=== PATIENT | male | born 1945 | race Asian ===

== ENCOUNTER 2016-08-28 12:09 | Outpatient (CLI) | payer MEDICARE, OTHER | END 2016-08-28 12:10 | disposition home or self-care (01) | DX: M18.0 Bilateral primary osteoarthritis of first carpometacarpal joints (principal) ==

== ENCOUNTER 2016-12-03 16:17 | Outpatient (CLI) | payer MEDICARE, OTHER | END 2016-12-03 16:18 | disposition critical access hospital (66) | DX: R06.82 Tachypnea, not elsewhere classified (principal) | CPT/HCPCS: A0425; A0427 ==

== ENCOUNTER 2016-12-03 16:31 | Emergency (ER) | payer MEDICARE, OTHER ==
[2016-12-03 17:04] LABS: BASOPHILS % (AUTO) 0.2 %; EOSINOPHILS # (AUTO) 0.3 10^3/uL (0.0-0.7); EOSINOPHILS % (AUTO) 5.9 %; HCT - HEMATOCRIT 42.6 % (42.0-52.0); HGB - HEMOGLOBIN 14.6 g/dL (14.0-18.0); LYMPHOCYTES # (AUTO) 0.3 10^3/uL (1.5-3.5); LYMPHOCYTES % (AUTO) 4.7 %; MEAN CORPUSCULAR HEMOGLOBIN 29.9 pg (27.0-31.0); MEAN CORPUSCULAR HGB CONC 34.3 g/dL (32.0-36.0); MEAN CORPUSCULAR VOLUME 87.2 fL (80.0-94.0); MEAN PLATELET VOLUME 9.9 fL (7.4-11.4); MONOCYTES % (AUTO) 0.5 %; NEUTROPHILS # (AUTO) 4.8 10^3/uL (1.5-6.6); NEUTROPHILS % (AUTO) 88.7 %; NUCLEATED RED BLOOD CELLS AUTO 0.1 /100WBC; RED BLOOD COUNT 4.88 10^6/uL (4.70-6.10); RED CELL DISTRIBUTION WIDTH 13.6 % (12.0-15.0); UNCORRECTED WHITE BLOOD COUNT 5.4 x10^3/uL; WHITE BLOOD COUNT 5.4 x10^3/uL (4.8-10.8)
[2016-12-03 17:14] LABS: CALCIUM 8.2 mg/dL (8.5-10.3); CREATININE 2.9 mg/dL (0.6-1.2); POTASSIUM 2.6 mmol/L (3.5-5.0)
[2016-12-03 17:20] LABS: PLATELET MORPHOLOGY 1+ LARGE PLATELETS (NORMAL)
[2016-12-03 17:21] LABS: PLATELET ESTIMATE, MANUAL DECREASED (<130,000) (NORMAL)
--- NOTE | 2016-12-03 17:27 | ED Physician Documentation ---
History of Present Illness - Stated complaint Stated Complaint: FLU LIKE SX - Chief complaint Chief Complaint: General - Additonal information Additional information: hx from pt 71 male who reports no sig Pmhx but take metformin and HCTZ to ER with 4 days up upper abd pain, nausea, vomit X one, few episodes diarrhea , shaking chills poor PO intake X several days no sick contacts, no travel, no bad food Review of Systems Constitutional: reports: Chills. denies: Fever Cardiac: denies: Chest pain / pressure Respiratory: denies: Dyspnea (but hypoxic) GI: reports: Abdominal Pain, Vomiting (X 1), Diarrhea. denies: Nausea, Bloody / black stool : denies: Dysuria Neurologic: reports: Generalized weakness Endocrine: denies: Easy bruising / bleeding Immunocompromised: denies: Immunocompromised PD PAST MEDICAL HISTORY - Past Medical History Past Medical History: No Cardiovascular: Hypertension - Past Surgical History Past Surgical History: Yes Ortho: Other - Present Medications Home Medications: Ambulatory Orders Medication Instructions Recorded Confirmed Hydrochlorothiazide 0 mg PO DAILY 12/03/16 12/03/16 metFORMIN [Glucophage] 0 mg PO DAILY 12/03/16 12/03/16 - Allergies Allergies/Adverse Reactions: Allergies Allergy/AdvReac Type Severity Reaction Status Date / Time No Known Drug Allergies Allergy Verified 12/03/16 16:35 - Social History Does the pt smoke?: No Smoking Status: Never smoker Does the pt drink ETOH?: No Does the pt have substance abuse?: No - Immunizations Immunizations are current?: Yes - POLST Patient has POLST: No PD ED PE NORMAL - Vitals Vital signs reviewed: Yes - General General: Alert and oriented X 3 - HEENT HEENT: Moist mucous membranes - Neck Neck: No JVD - Cardiac Cardiac: No: RRR (tacy) - Respiratory Respiratory: Other (rales danielito bases) - Abdomen Abdomen: Soft, Other (mod TTP upper abd, faintly palpable aorta, no lower abd TTP) - Derm Derm: Other (warm disphoretic) - Extremities Extremities: No edema, No calf tenderness / cord - Neuro Neuro: Alert and oriented X 3 Results - Vitals Vitals: Vital Signs - 24 hr 12/03/16 12/03/16 12/03/16 16:35 17:32 18:02 Temperature 36.6 C Heart Rate 138 H 119 H 109 H Respiratory 18 20 18 Rate Blood Pressure 118/76 90/53 L 90/51 L O2 Saturation 88 L 93 94 12/03/16 12/03/16 12/03/16 18:12 18:42 18:55 Temperature Heart Rate 105 H 111 H 110 H Respiratory 18 20 18 Rate Blood Pressure 87/52 L 91/53 L 94/53 L O2 Saturation 95 98 96 12/03/16 12/03/16 12/03/16 19:51 20:34 21:19 Temperature 36.6 C Heart Rate 111 H 114 H 114 H Respiratory 18 18 18 Rate Blood Pressure 89/55 L 88/56 L 84/49 L O2 Saturation 94 91 L 92 12/03/16 12/03/16 12/03/16 21:45 22:03 22:27 Temperature 37.1 C Heart Rate 116 H 113 H 116 H Respiratory 20 20 22 Rate Blood Pressure 87/51 L 85/52 L 86/53 L O2 Saturation 91 L 92 92 12/03/16 12/03/16 22:33 22:42 Temperature Heart Rate 115 H Respiratory 18 20 Rate Blood Pressure 90/54 L 101/64 O2 Saturation 94 93 Oxygen O2 Source Nasal cannula Oxygen Flow Rate 3 - EKG (time done) 1650 Rate: Rate (enter#) (127) Rhythm: NSR Goodwin: LAD Ischemia: Q waves (inferior and anterior), Non specific changes Other comments: Other comments (severe baseline wander despite numerous attempts ) - Labs Labs: Laboratory Tests 12/03/16 12/03/16 12/03/16 16:51 16:51 16:51 WBC 5.4 RBC 4.88 Hgb 14.6 Hct 42.6 MCV 87.2 MCH 29.9 MCHC 34.3 RDW 13.6 Plt Count 90 L MPV 9.9 Neut # 4.8 Lymph # 0.3 L Caldwell # 0.0 Eos # 0.3 Baso # 0.0 Absolute Nucleated RBC 0.00 Total Counted Band Neuts % (Manual) Neutrophils # (Manual) Lymphocytes # (Manual) Monocytes # (Manual) Nucleated RBCs 0.1 Differential Comment Manual Slide Review Indicated WBC Morphology Platelet Estimate DECREASED (<130,000) Platelet Morphology 1+ LARGE PLATELETS RBC Morph Micro Appear 1+ ANISOCYTOSIS PT INR Sodium 128 L Potassium 2.6 L Chloride 89 L Carbon Dioxide 20 L Anion Gap 19.0 H BUN 55 H Creatinine 2.9 H Estimated GFR (MDRD) 22 L Glucose 147 H Lactic Acid Calcium 8.2 L Total Bilirubin Direct Bilirubin AST ALT Alkaline Phosphatase Total Creatine Kinase Troponin I 0.04 B-Natriuretic Peptide Total Protein Albumin Globulin Amylase Lipase Urine Color Urine Clarity Urine pH Ur Specific [place] Urine Protein Urine Glucose (UA) Urine Ketones Urine Occult Blood Urine Nitrite Urine Bilirubin Urine Urobilinogen Ur Leukocyte Esterase Urine RBC Urine WBC Ur Squamous Epith Cells Amorphous Sediment Urine Bacteria Urine Casts Ur Microscopic Review Urine Culture Comments 12/03/16 12/03/16 12/03/16 16:51 16:51 16:51 WBC RBC Hgb Hct MCV MCH MCHC RDW Plt Count MPV Neut # Lymph # Caldwell # Eos # Baso # Absolute Nucleated RBC Total Counted Band Neuts % (Manual) Neutrophils # (Manual) Lymphocytes # (Manual) Monocytes # (Manual) Nucleated RBCs Differential Comment Manual Slide Review WBC Morphology Platelet Estimate Platelet Morphology RBC Morph Micro Appear PT INR Sodium Potassium Chloride Carbon Dioxide Anion Gap BUN Creatinine Estimated GFR (MDRD) Glucose Lactic Acid 4.9 H* Calcium Total Bilirubin 3.9 H Direct Bilirubin 1.8 H AST 176 H ALT 195 H Alkaline Phosphatase 247 H Total Creatine Kinase Troponin I B-Natriuretic Peptide 272 H Total Protein 6.2 L Albumin 2.8 L Globulin 3.4 Amylase 29 Lipase 13 L Urine Color Urine Clarity Urine pH Ur Specific [place] Urine Protein Urine Glucose (UA) Urine Ketones Urine Occult Blood Urine Nitrite Urine Bilirubin Urine Urobilinogen Ur Leukocyte Esterase Urine RBC Urine WBC Ur Squamous Epith Cells Amorphous Sediment Urine Bacteria Urine Casts Ur Microscopic Review Urine Culture Comments 12/03/16 12/03/16 12/03/16 16:51 17:41 21:58 WBC RBC Hgb Hct MCV MCH MCHC RDW Plt Count MPV Neut # Lymph # Caldwell # Eos # Baso # Absolute Nucleated RBC Total Counted Band Neuts % (Manual) Neutrophils # (Manual) Lymphocytes # (Manual) Monocytes # (Manual) Nucleated RBCs Differential Comment Manual Slide Review WBC Morphology Platelet Estimate Platelet Morphology RBC Morph Micro Appear PT INR Sodium Potassium Chloride Carbon Dioxide Anion Gap BUN Creatinine Estimated GFR (MDRD) Glucose Lactic Acid 2.5 H Calcium Total Bilirubin Direct Bilirubin AST ALT Alkaline Phosphatase Total Creatine Kinase 21 L Troponin I B-Natriuretic Peptide Total Protein Albumin Globulin Amylase Lipase Urine Color YELLOW Urine Clarity CLOUDY Urine pH 5.0 Ur Specific [place] 1.020 Urine Protein 100 H Urine Glucose (UA) NEGATIVE Urine Ketones NEGATIVE Urine Occult Blood LARGE H Urine Nitrite NEGATIVE Urine Bilirubin NEGATIVE Urine Urobilinogen 0.2 (NORMAL) Ur Leukocyte Esterase NEGATIVE Urine RBC 0-5 Urine WBC 0-3 Ur Squamous Epith Cells RARE Squamous Amorphous Sediment Moderate Urine Bacteria Few Urine Casts 3-5 Course Granular Ur Microscopic Review INDICATED Urine Culture Comments NOT INDICATED 12/03/16 12/03/16 12/03/16 21:58 21:58 21:58 WBC 20.2 H RBC 4.08 L Hgb 12.1 L Hct 36.2 L MCV 88.6 MCH 29.7 MCHC 33.5 RDW 13.9 Plt Count 79 L MPV 10.1 Neut # Not Reportable Lymph # Not Reportable Caldwell # Not Reportable Eos # Not Reportable Baso # Not Reportable Absolute Nucleated RBC Not Reportable Total Counted 100 Band Neuts % (Manual) 8 Neutrophils # (Manual) 17.6 H Lymphocytes # (Manual) 2.2 Monocytes # (Manual) 0.4 Nucleated RBCs Not Reportable Differential Comment MANUAL DIFFERENTIAL Manual Slide Review WBC Morphology TOXIC GRANULATION Platelet Estimate DECREASED (<130,000) Platelet Morphology 1+ LARGE PLATELETS RBC Morph Micro Appear 1+ ANISOCYTOSIS PT 13.9 H INR 1.2 Sodium 131 L Potassium 3.0 L Chloride 97 L Carbon Dioxide 23 Anion Gap 11.0 BUN 58 H Creatinine 3.1 H Estimated GFR (MDRD) 20 L Glucose 132 H Lactic Acid Calcium 7.0 L Total Bilirubin Direct Bilirubin AST ALT Alkaline Phosphatase Total Creatine Kinase Troponin I B-Natriuretic Peptide Total Protein Albumin Globulin Amylase Lipase Urine Color Urine Clarity Urine pH Ur Specific [place] Urine Protein Urine Glucose (UA) Urine Ketones Urine Occult Blood Urine Nitrite Urine Bilirubin Urine Urobilinogen Ur Leukocyte Esterase Urine RBC Urine WBC Ur Squamous Epith Cells Amorphous Sediment Urine Bacteria Urine Casts Ur Microscopic Review Urine Culture Comments - Rads (name of study) CXR Radiology: See rad report (low lung volumes, nl heart size, no acute infiltrate or effusion) non con chest Radiology: See rad report (interlobular septal thickening with mild diffuse haziness concerning for pulm edema, no pericardial effusion, no pleural effusion ) non con abd pelvis Radiology: See rad report (small pericardial effusion (not seen on subsequent CT chest), new danielito moderate perinephric fat stranding coorelate for infection, no obstruction seen) abd sono Radiology: See rad report (no AAA, no dissection appreicated, nl GB, large avascular mixed density lesion in liver could be mass or abscess , dec urine jet on L, no FF) PD MEDICAL DECISION MAKING - ED course ED course: 71 male to ER with abd pain and upper abd TTP but also markedly hypoxic and rales on exam EKG abn and c/w prior ACS, but trop neg after sx X 4 days CXR shows no CHF - BNP pending - although pt sounded wet, his CXR was neg so tried 500 ml NS when BP dropped - no change in resp, BNP came back 270s so gave another L and still no worsening - will continue to aggressively fluid resusc anion gap acidosis noted and likely 2/2 uremia and or lactic acidosis no travel or leg swelling so doubt PE - cannot get CTPA but will get non con chest abd CT shows danielito perinephric stranding c/w urinary infection and pt has TREMAINE - but UA is neg for leuk est, nitrate, WBC and bacteria, + blood but neg for RBC ( added CK) lactate elev so gave broad spectrum antibiotics while work up proceeds - but no specific infectious source found so far (sono later showed liver abscess) dissection could cause abd pain, possibly affect renal vascular supply and cause TREMAINE, could cause cardiac effusion of type A GFR too low for any con and echo is gone but got non con CT and abd aortic sono for further eval - further imaging shows no sign of dissection within limitations of studies pt can safely have TREMAINE could be 2/2 dehydration as pt report s very poor po intake - is making urine ad K actually low (repleted after urine) - no L jet on sono but no obstructive process on CT ultrasound did show a possible liver abscess which could be the cause of all of the above - had been given invanz after all cx obtained - should be good generalized coverage including anaerobes but not pseudomonas - will add levaquin BP low throughout ER stay, slightly improved with IVF, SBP staying in low 90s upper 80s, pt is feeling much better, mentating well, not in pain at this time, do not feel pressors are indicated yet though may be needed in near future if BP drops any more pt may need a tertiary care facility given multisystem involvement (hypoxia, new pulm edema, TREMAINE, elevated LFTs, possibly septic) (may need IR, ID, hepatology, rubber boots and shoes repairer, cardiology, nephrology etc) 10 PM still trying to find accepting phsyician and hospital - [facility] will likely accept but awaiting call from hospitalist - turned over to next shift Dr Castano - he has ordered rpt labs since it has been about 6 hr Departure - Departure Disposition: 02 Transfer Acute Care Hosp Clinical Impression: Liver abscess, Hypoxia, Hypokalemia, Acute renal insufficiency, Elevated liver enzymes, Thrombocytopenia Hypotension Qualifiers: Hypotension type: unspecified hypotension type Qualified Code(s): I95.9 - Hypotension, unspecified Condition: Serious
--- NOTE | 2016-12-03 17:27 | XRAY Preliminary Report ---
Exam: XR Chest 1 View IMPRESSION: 1. Lung volumes are somewhat low. Normal heart size. 2. No evidence of focal infiltrate or large effusion. 3. No pneumothorax. [facility] SITE ID: [id number]
--- NOTE | 2016-12-03 17:30 | XRAY Report ---
EXAM: CHEST RADIOGRAPHY EXAM DATE: 12/03/2016 05:13 PM. CLINICAL HISTORY: Hypoxic. COMPARISON: None. TECHNIQUE: 1 view. FINDINGS: Lungs/Pleura: Lung volumes are somewhat low. There is mild perihilar reticular opacity without eviden ce of focal infiltrate or effusion. No pneumothorax. Mediastinum: Within exam limitations, cardiomediastinal contour is normal. Other: None. IMPRESSION: 1. Lung volumes are somewhat low. Normal heart size. 2. No evidence of focal infiltrate or large effusion. 3. No pneumothorax. [facility] Referring Provider Line: [phone] SITE ID: [id number]
[2016-12-03] MEDS ORDERED: SODIUM CHLORIDE 0.9% 500 ML IV ONE (17:33)
[2016-12-03 17:55] LABS: BILIRUBIN,DIRECT 1.8 mg/dL (0.1-0.5); BILIRUBIN,TOTAL 3.9 mg/dL (0.2-1.0); TOTAL PROTEIN 6.2 g/dL (6.7-8.2)
--- NOTE | 2016-12-03 17:56 | CT Preliminary Report ---
Exam: CT Abdomen/Pelvis W/O IMPRESSION: 1. New small pericardial effusion. 2. New bilateral moderate nonspecific perinephric fat stranding. Correlate clinically to assess for u rinary tract infection. No obstructive uropathy. 3. Colonic diverticulosis. [facility] SITE ID: [id number]
[2016-12-03 17:59] LABS: BILIRUBIN,URINE NEGATIVE (NEGATIVE)
[2016-12-03 18:01] LABS: UA w/ MICROSCOPIC CHARGE YES
[2016-12-03] MEDS ORDERED: SODIUM CHLORIDE 0.9% 1,000 ML IV ONE ×6 (18:12→21:39)
[2016-12-03] MEDS ORDERED: POTASSIUM CHLOR 10 MEQ/100 ML 100 ML IV ONE ×4 (18:13→20:53)
[2016-12-03] MEDS ORDERED: MORPHINE 2 MG/ML SYRINGE IVP STA (18:14)
[2016-12-03] MEDS ORDERED: ONDANSETRON 4 MG/2 ML VIAL IVP STA (18:14)
--- NOTE | 2016-12-03 18:15 | CT Report ---
EXAM: CT ABDOMEN AND PELVIS (CT KUB) EXAM DATE: 12/03/2016 05:27 PM. CLINICAL HISTORY: Abdominal pain epigastric , nausea, vomiting, tachycardia for 3 days. No prior abdo madi surgery. Hypoxia. COMPARISONS: 04/05/2015. TECHNIQUE: Routine axial helical CT imaging was performed through the abdomen and pelvis without IV c ontrast. Reconstructions: Coronal and sagittal. In accordance with CT protocol optimization, one or more of the following dose reduction techniques w ere utilized for this exam: automated exposure control, adjustment of mA and/or KV based on patient s ize, or use of iterative reconstructive technique. FINDINGS: Lung Bases: New small pericardial effusion. Right Kidney/Ureter: No stones, hydronephrosis, or hydroureter. New moderate perinephric fat strandin g. Left Kidney/Ureter: No stones, hydronephrosis, or hydroureter. New moderate perinephric fat stranding . Other Solid Organs: Noncontrast images of the solid organs are grossly unremarkable. Gallbladder/Bile Ducts: Unremarkable. Peritoneal Cavity: No free fluid, free air or deyvi adenopathy. Bowel is grossly unremarkable. Normal appendix. Diverticula off the colon. Pelvic Organs: No bladder stones or wall thickening. Noncontrast images of the visualized pelvic orga ns are unremarkable. Vasculature: Unremarkable. Other: None. IMPRESSION: 1. New small pericardial effusion. 2. New bilateral moderate nonspecific perinephric fat stranding. Correlate clinically to assess for u rinary tract infection. No obstructive uropathy. 3. Colonic diverticulosis. [facility] Referring Provider Line: [phone] SITE ID: [id number]
[2016-12-03] MEDS ORDERED: ERTAPENEM 1 GM in SODIUM CHLORIDE 0.9% MINIBAG 100 ML IV STA (18:22)
[2016-12-03 18:29] LABS: UR CULTURE IF IND NOT INDICATED; WBC,URINE 0-3 /HPF (0-3)
--- NOTE | 2016-12-03 20:12 | CT Preliminary Report ---
Exam: CT Chest W/O IMPRESSION: 1. Interlobular septal thickening with mild diffuse haziness concerning for pulmonary edema. 2. No pericardial or pleural effusion. [facility] SITE ID: [id number]
--- NOTE | 2016-12-03 20:14 | CT Report ---
EXAM: CT CHEST EXAM DATE: 12/03/2016 07:43 PM. CLINICAL HISTORY: Worsening hypoxia. Concern for pericardial effusion. COMPARISONS: None. TECHNIQUE: Routine helical CT imaging was performed through the chest. IV contrast: None. Reconstructions: Coron al and sagittal. In accordance with CT protocol optimization, one or more of the following dose reduction techniques w ere utilized for this exam: automated exposure control, adjustment of mA and/or KV based on patient s ize, or use of iterative reconstructive technique. FINDINGS: Lungs/Pleura: Mild haziness and interlobular septal thickening. No nodules, bronchial thickening, con solidation, or ground glass infiltrates. No pericardial or pleural effusion. No pneumothorax. Mediastinum: Mild aortic and coronary artery calcification. No adenopathy or masses. The heart and gr eat vessels are normal. Bones: Unremarkable. Visualized Abdomen: Unremarkable. Other: None. IMPRESSION: 1. Interlobular septal thickening with mild diffuse haziness concerning for pulmonary edema. 2. No pericardial or pleural effusion. [facility] Referring Provider Line: [phone] SITE ID: [id number]
--- NOTE | 2016-12-03 21:01 | Ultrasound Preliminary Report ---
Exam: US Abdomen Complete IMPRESSION: 1. There is a heterogeneous hypoechoic lesion measuring 5 x 4 x 6 cm within the left hepatic lobe. Di fferential considerations include mass or abscess. 2. There is no intra-or extrahepatic bile duct dil atation. 3. The kidneys demonstrate no evidence of hydronephrosis. [facility] SITE ID: [id number]
--- NOTE | 2016-12-03 21:05 | Ultrasound Report ---
EXAM: ABDOMEN ULTRASOUND EXAM DATE: 12/03/2016 08:43 PM. CLINICAL HISTORY: Upper abd pain, sepsis, TREMAINE, abn LFTs, peric effus. COMPARISON: CT from the same evening.. TECHNIQUE: Real-time scanning was performed with static images obtained. FINDINGS: Liver: There is a heterogeneous hypoechoic mass measuring approximately 5 x 4 x 6 cm within the left hepatic lobe. It demonstrates no evidence of significant vascularity. Th ere may be underlying hepatic steatosis. Gallbladder: Normal. No stones, wall thickening, or sonographic Mckee's sign. Biliary System: Common bile duct measures 4 mm. No intrahepatic or extrahepatic ductal dilatation. Pancreas: Not well seen. Kidneys: Right: 12.5 cm longitudinally. Normal. No contour-deforming mass, stones, or hydronephrosis. Left: 11.3 cm longitudinally. Normal. No contour-deforming mass, stones, or hydronephrosis. Spleen: 13.8 cm. Normal in size and echotexture. Aorta and Inferior Vena Cava: Unremarkable. IMPRESSION: 1. There is a heterogeneous hypoechoic lesion measuring 5 x 4 x 6 cm within the left hepatic lobe. Di fferential considerations include mass or abscess. 2. There is no intra-or extrahepatic bile duct dil atation. 3. The kidneys demonstrate no evidence of hydronephrosis. [facility] Referring Provider Line: [phone] SITE ID: [id number]
--- NOTE | 2016-12-03 21:07 | Ultrasound Preliminary Report ---
Exam: US Bladder IMPRESSION: 1. Urinary bladder demonstrates no focal abnormalities. 2. Right ureteral jet is seen. Left ureteral jet was not clearly demonstrated. 3. The prostate is enlarged. [facility] SITE ID: [id number]
--- NOTE | 2016-12-03 21:07 | Ultrasound Report ---
EXAM: PELVIS ULTRASOUND, LIMITED EXAM DATE: 12/03/2016 08:43 PM. CLINICAL HISTORY: Eval for obstructive cause of TREMAINE. COMPARISON: 12/03/2016. TECHNIQUE: Real-time scanning was performed with static images obtained. FINDINGS: The urinary bladder demonstrates no focal lesions. Right ureteral jet is present. Equivocal left ureteral jet. The prostate is enlarged and heterogeneous. It measures 6.1 x 4.1 x 5.7 cm. IMPRESSION: 1. Urinary bladder demonstrates no focal abnormalities. 2. Right ureteral jet is seen. Left ureteral jet was not clearly demonstrated. 3. The prostate is enlarged. [facility] Referring Provider Line: [phone] SITE ID: [id number]
[2016-12-03 22:10] LABS: BASOPHILS % (AUTO) 0.4 %; EOSINOPHILS % (AUTO) 4.3 %; HCT - HEMATOCRIT 36.2 % (42.0-52.0); HGB - HEMOGLOBIN 12.1 g/dL (14.0-18.0); LYMPHOCYTES % (AUTO) 2.4 %; MEAN CORPUSCULAR HEMOGLOBIN 29.7 pg (27.0-31.0); MEAN CORPUSCULAR HGB CONC 33.5 g/dL (32.0-36.0); MEAN CORPUSCULAR VOLUME 88.6 fL (80.0-94.0); MEAN PLATELET VOLUME 10.1 fL (7.4-11.4); MONOCYTES % (AUTO) 3.1 %; NEUTROPHILS % (AUTO) 89.8 %; RED BLOOD COUNT 4.08 10^6/uL (4.70-6.10); RED CELL DISTRIBUTION WIDTH 13.9 % (12.0-15.0); UNCORRECTED WHITE BLOOD COUNT 20.2 x10^3/uL; WHITE BLOOD COUNT 20.2 x10^3/uL (4.8-10.8)
[2016-12-03 22:15] LABS: INR 1.2 (0.8-1.2); PT - PROTHROMBIN TIME 13.9 secs (9.9-12.6)
[2016-12-03 22:16] LABS: CREATININE 3.1 mg/dL (0.6-1.2)
[2016-12-03 22:30] LABS: BAND NEUTROPHILS % (MANUAL) 8 %; LYMPHOCYTES % (MANUAL) 11 %; NEUTROPHILS % (MANUAL) 79 %; TOTAL CELLS COUNTED 100
[2016-12-03 22:31] LABS: NP AUTO DIFFERENTIAL? YES; NP MAN DIFFERENTIAL? NO; PLATELET ESTIMATE, MANUAL DECREASED (<130,000) (NORMAL); PLATELET MORPHOLOGY 1+ LARGE PLATELETS (NORMAL); WBC MORPHOLOGY (MULTIPLE) TOXIC GRANULATION (NORMAL)
[2016-12-04 05:55] VITALS: BP 117/78
--- NOTE | 2016-12-04 06:30 | ED Physician Documentation ---
ED Addendum - Addendum Addendum: 12/04/16 06:16 71 y/o male presented with vomiting and diarrhea and was ultimately found to have a liver abscess. He arrived with some hypoxia, an elevated lactate a normal WBC and marked abnormalities of all LFT's, electrolytes and renal function is compromised. He was hypotensive in the upper 80's and 90's systolic and he responded to IV fluids, IV ertapenum and IV levaquin with improvement in his lactate and eventually his blood pressure improved to over 110 systolic and his O2 sat improved to >95% on 2l N/C. This patients required care exceeds the capacity of this hospital and attempts to transfer to an appropriate hospital required multiple calls to multiple hospitals. [facility], [facility] and were all at capacity as was [facility]. The case was reviewed with the services program manager Dr. Chowdhury at [facility] and with his response to interventions it was apparent he would be a good candidate for a floor bed and his films were reviewed and it appears he will need some time for the abscess to ripen before drainage. Dr. Vang the hospitalist at [facility] graciously agreed to take the patient in transfer and arrangements were made for transfer. MIRANDA.
== END 2016-12-04 06:40 | disposition short-term general hospital (02) ==
LOC: EDUNIT# → ED 16:31
DX: K75.0 Abscess of liver (principal); R09.02 Hypoxemia; E87.6 Hypokalemia; N28.9 Disorder of kidney and ureter, unspecified; R74.8 Abnormal levels of other serum enzymes; D69.6 Thrombocytopenia, unspecified; I95.9 Hypotension, unspecified; E11.9 Type 2 diabetes mellitus without complications; Z79.84 Long term (current) use of oral hypoglycemic drugs
CPT/HCPCS: 36415; 71010; 71250; 74176; 76700; 76857; 80048; 80076; 81001; 82150; 82550; 83605; 83690; 83880; 84484; 85025; 85610; 87040; 93005; 93010; 96361; 96365; 96367; 96368; 99284; 99285; J1335; 81003; 87086

== ENCOUNTER 2016-12-04 06:45 | Outpatient (CLI) | payer MEDICARE, OTHER | END 2016-12-04 06:46 | disposition short-term general hospital (02) | LOC: EMS 06:45 | PROVIDERS: ATTEND Surgery | DX: K75.0 Abscess of liver (principal) | CPT/HCPCS: A0425; A0428 ==

== ENCOUNTER 2017-11-05 17:47 | Emergency (ER) | payer MEDICARE, OTHER ==
--- NOTE | 2017-11-05 18:27 | ED Physician Documentation ---
PD HPI UPPER EXT INJURY - Stated complaint Stated Complaint: RT ARM PX - Chief complaint Chief Complaint: Ext Problem - History obtained from History obtained from: Patient - History of Present Illness Location: Right, Elbow (He was carrying a table, it started to fall and he reached for it and he felt a pop in the right elbow. No other injuries. He has not had trouble with that elbow before.) Review of Systems Constitutional: reports: Reviewed and negative Cardiac: reports: Reviewed and negative Respiratory: reports: Reviewed and negative PD PAST MEDICAL HISTORY - Past Medical History Cardiovascular: Hypertension - Past Surgical History Past Surgical History: Yes Ortho: Other - Present Medications Home Medications: Ambulatory Orders Medication Instructions Recorded Confirmed metFORMIN [Glucophage] 0 mg PO DAILY 12/03/16 12/03/16 Losartan [Cozaar] 0 DAILY 11/05/17 - Allergies Allergies/Adverse Reactions: Allergies Allergy/AdvReac Type Severity Reaction Status Date / Time No Known Drug Allergies Allergy Verified 11/05/17 18:01 - Social History Does the pt smoke?: No Smoking Status: Never smoker Does the pt drink ETOH?: No Does the pt have substance abuse?: No - Immunizations Immunizations are current?: Yes - POLST Patient has POLST: No PD ED PE NORMAL - Vitals Vital signs reviewed: Yes - General General: Alert and oriented X 3, No acute distress - Extremities Extremities: Other (He has some tenderness of the olecranon and the supracondylar area posteriorly of the right elbow. He is relatively good range of motion but is not quite able to fully extend it. He has normal neurovascular status and strength in the hand.) - Neuro Neuro: Alert and oriented X 3, Normal speech Results - Vitals Vitals: Vital Signs - 24 hr 11/05/17 17:55 Temperature 36.2 C L Heart Rate 97 Respiratory 16 Rate Blood Pressure 144/87 H O2 Saturation 97 Oxygen O2 Source Room air PD MEDICAL DECISION MAKING - ED course ED course: 72-year-old gentleman with apparently a tricep avulsion piece on history and x- ray. Spoke by phone with Dr. Barger who recommended a sling and follow-up in clinic to discuss potential surgical repair. Departure - Departure Disposition: 01 Home, Self Care Clinical Impression: Triceps tendon rupture Qualifiers: Encounter type: initial encounter Laterality: right Qualified Code(s): S46.311A - Strain of muscle, fascia and tendon of triceps, right arm, initial encounter Condition: Good Record reviewed to determine appropriate education?: Yes Follow-Up: Whitney Barger MD [Provider Admit Priv/Credential] - Comments: Keep the sling on, call Dr. Barger's office tomorrow to make a follow-up appointment. Tylenol as needed for pain. Your blood pressure was elevated today on check into the emergency department. This does not mean that you have hypertension, it is a common phenomenon to come to the emergency department and have elevated blood pressure. I recommend that you see your primary care physician within the week to have it rechecked when you are feeling better.
--- NOTE | 2017-11-05 19:46 | XRAY Report ---
EXAM: RIGHT ELBOW RADIOGRAPHY EXAM DATE: 11/05/2017 07:27 PM. CLINICAL HISTORY: Elbow pain COMPARISON: None. TECHNIQUE: 3 views. FINDINGS: Bones: No fracture or focal bony lesion. Joints: No evidence of dislocation. Soft Tissues: Calcifications at the posterior margin of the elbow could represent calcific tendinopat hy. IMPRESSION: No evidence of acute fracture or dislocation. [facility] Referring Provider Line: [phone] SITE ID: [id number]
[2017-11-05 19:58] VITALS: BP 149/93
== END 2017-11-05 19:57 | disposition home or self-care (01) ==
LOC: ED 17:47
DX: S46.311A Strain of muscle, fascia and tendon of triceps, right arm, initial encounter (principal); X50.9XXA Other and unspecified overexertion or strenuous movements or postures, initial encounter; I10 Essential (primary) hypertension
CPT/HCPCS: 99283

== ENCOUNTER 2017-11-09 13:16 | Outpatient (CLI) | payer MEDICARE, OTHER ==
--- NOTE | 2017-11-09 14:41 | MRI Report ---
EXAM: RIGHT ELBOW MRI WITHOUT CONTRAST EXAM DATE: 11/09/2017 02:22 PM. CLINICAL HISTORY: RT ELBOW, TRICEPS PAIN. COMPARISON: None. TECHNIQUE: Multiplanar, multisequence T1-weighted and fluid-sensitive sequences of the elbow without contrast. Other: None. FINDINGS: Bones and articular surfaces: No joint effusion. No osteochondral lesions. No significant articular c artilage defects. No acute fracture identified. Musculotendinous structures: There is a partial tear of the distal triceps adjacent to the humeral in sertion. The more superficial fibers of the distal tendon are torn at and adjacent to the insertion w ith approximately 3.5 cm proximal retraction. The deeper fibers of the distal triceps musculature and tendon appear intact. The torn portion likely represents fibers of the long head and some superficia l fibers of the medial head. Patchy edema within the partially visualized medial and lateral head. So me fluid along the tear defect and adjacent to the musculotendinous junction of the torn portion. The biceps and brachialis insertions appear intact. The common extensor and common flexor pronator origi ns appear intact. Ligaments: The ulnar collateral, radial collateral and lateral ulnar collateral ligaments appear inta ct. Ulnar nerve: Normal course, signal and morphology. Miscellaneous: Posterior subcutaneous soft tissue edema. IMPRESSION: 1. Partial-thickness tear involving superficial fibers of the distal triceps at and adjacent to the o lecranon insertion with 3.5 cm retraction. [facility] MUSCULOSKELETAL RADIOLOGY SECTION Referring Provider Line: [phone] SITE ID: [id number]
== END 2017-11-09 13:17 | disposition home or self-care (01) ==
LOC: DI 13:16
PROVIDERS: ATTEND Orthopaedic Surgery
DX: S46.311A Strain of muscle, fascia and tendon of triceps, right arm, initial encounter (principal)

== ENCOUNTER 2017-11-19 07:22 | Day surgery (SDC) | payer MEDICARE, OTHER ==
[2017-11-19 07:49] VITALS: BP 153/83
[2017-11-19] MEDS ORDERED: LACTATED RINGERS 1,000 ML IV ONE (08:00)
[2017-11-19] MEDS ORDERED: BUPIVACAINE 0.25%-EPI 1:200000 PF 30 ML VIAL ONE (08:22)
== END 2017-11-19 07:23 | disposition home or self-care (01) ==
LOC: SDS 07:22
PROVIDERS: ATTEND Orthopaedic Surgery
DX: Z53.9 Procedure and treatment not carried out, unspecified reason (principal); S46.311A Strain of muscle, fascia and tendon of triceps, right arm, initial encounter